=== PATIENT | female | born 1975 | race Caucasian/White ===

== ENCOUNTER 2016-06-10 21:23 | Emergency (ER) | payer MEDICAID ==
[2016-06-10 21:38] VITALS: BP 121/76
== END 2016-06-10 22:49 | disposition home or self-care (01) ==
LOC: ED 21:23
DX: S43.402A Unspecified sprain of left shoulder joint, initial encounter (principal); S93.402A Sprain of unspecified ligament of left ankle, initial encounter; W01.0XXA Fall on same level from slipping, tripping and stumbling without subsequent striking against object, initial encounter; Y93.89 Activity, other specified; Y92.512 Supermarket, store or market as the place of occurrence of the external cause; Y99.8 Other external cause status

== ENCOUNTER 2016-11-08 08:38 | Emergency (ER) | payer MEDICAID ==
[2016-11-08 10:02] VITALS: BP 132/87
== END 2016-11-08 10:02 | disposition home or self-care (01) ==
LOC: ED 08:38
DX: B34.9 Viral infection, unspecified (principal); R03.0 Elevated blood-pressure reading, without diagnosis of hypertension
CPT/HCPCS: J7613; J7644

== ENCOUNTER 2017-05-19 11:08 | Emergency (ER) | payer MEDICAID ==
[~2017-05-19] VITALS: Ht 154.9 cm; Wt 85.3 kg
[2017-05-19 11:15] VITALS: Ht 154.9 cm; Wt 85.3 kg
[2017-05-19 13:00] VITALS: BP 138/80
== END 2017-05-19 13:00 | disposition home or self-care (01) ==
LOC: ED 11:08
DX: S61.452A Open bite of left hand, initial encounter (principal); W64.XXXA Exposure to other animate mechanical forces, initial encounter; Y93.89 Activity, other specified; Y92.89 Other specified places as the place of occurrence of the external cause; Y99.8 Other external cause status
CPT/HCPCS: 90715

== ENCOUNTER 2017-09-16 06:44 | Emergency (ER) | payer SELFPAY ==
[~2017-09-16] VITALS: Ht 154.9 cm; Wt 83.9 kg
[2017-09-16 06:52] VITALS: Ht 154.9 cm; Wt 83.9 kg
[2017-09-16 07:35] LABS: BASOPHIL % 0.4 % (0-2); PLATELET COUNT 230 x10^3mcL (130-400)
[2017-09-16 07:55] LABS: RED CELL DISTRIBUTION WIDTH 15.7 % (11.5-14.5)
[2017-09-16 09:11] VITALS: BP 122/79
== END 2017-09-16 09:11 | disposition home or self-care (01) ==
LOC: ED 06:44
PROVIDERS: Emergency Medicine
DX: N93.8 Other specified abnormal uterine and vaginal bleeding (principal); D25.9 Leiomyoma of uterus, unspecified; D64.9 Anemia, unspecified
CPT/HCPCS: 36415

== ENCOUNTER 2017-11-27 18:25 | Emergency (ER) | payer SELFPAY ==
[~2017-11-27] VITALS: Ht 157.5 cm; Wt 80.7 kg
[2017-11-27 18:48] VITALS: Ht 157.5 cm; Wt 80.7 kg
[2017-11-27 19:52] LABS: CALCIUM 8.4 mg/dL (8.5-10.1); CARBON DIOXIDE 25.5 mmol/L (21-32); CHLORIDE SERUM 106 mmol/L (98-107); CREATININE SERUM 0.6 mg/dL (0.6-1.0); GFR1 > 60 mL/min; GLUCOSE SERUM 94 mg/dL (74-106); POTASSIUM SERUM 3.9 mmol/L (3.5-5.1); SODIUM SERUM 140 mmol/L (136-145)
[2017-11-27 19:59] LABS: ALBUMIN 3.6 g/dL (3.4-5.0); ALKALINE PHOSPHATASE 51 U/L (46-116); ALT/SGPT 26 U/L (14-59); AST/SGOT 14 U/L (15-37); BILIRUBIN TOTAL 0.2 mg/dL (0.20-1.00); LIPASE 170 IU/L (73-393); TOTAL PROTEIN, SERUM 7.3 g/dL (6.4-8.2)
[2017-11-27 20:06] LABS: BASOPHIL % 0.3 % (0-2); PLATELET COUNT 291 x10^3mcL (130-400); RED CELL DISTRIBUTION WIDTH 17.1 % (11.5-14.5)
[2017-11-27 20:49] LABS: UA SPECIFIC GRAVITY >=1.030 (1.005-1.035); microscopic required? YES; urine erythrocyte 3+ (NEGATIVE)
[2017-11-27 22:14] VITALS: BP 105/70
== END 2017-11-27 22:40 | disposition home or self-care (01) ==
LOC: ED 18:25
PROVIDERS: Emergency Medicine
DX: N93.8 Other specified abnormal uterine and vaginal bleeding (principal); Z98.890 Other specified postprocedural states
CPT/HCPCS: J1050; J1885; J2405; J7030

== ENCOUNTER 2018-02-17 04:08 | Emergency (ER) | payer MEDICAID ==
[~2018-02-17] VITALS: Ht 154.9 cm; Wt 83.0 kg
[2018-02-17 04:45] LABS: UA SPECIFIC GRAVITY 1.025 (1.005-1.035); microscopic required? YES; urine erythrocyte 3+ (NEGATIVE)
[2018-02-17 04:47] LABS: BASOPHIL % 0.3 % (0-2); PLATELET COUNT 312 x10^3mcL (130-400); RED CELL DISTRIBUTION WIDTH 18.2 % (11.5-14.5)
[2018-02-17 04:55] LABS: CARBON DIOXIDE 26.5 mmol/L (21-32); CHLORIDE SERUM 104 mmol/L (98-107); GFR1 > 60 mL/min; GLUCOSE SERUM 120 mg/dL (74-106); POTASSIUM SERUM 3.6 mmol/L (3.5-5.1); SODIUM SERUM 141 mmol/L (136-145)
[2018-02-17 07:08] VITALS: BP 101/64
== END 2018-02-17 07:08 | disposition home or self-care (01) ==
LOC: ED 04:08
PROVIDERS: Student in an Organized Health Care Education/Training Program
DX: N92.0 Excessive and frequent menstruation with regular cycle (principal); D25.9 Leiomyoma of uterus, unspecified; Z98.890 Other specified postprocedural states
CPT/HCPCS: J7030; Q0092

== ENCOUNTER 2019-01-29 17:19 | Emergency (ER) | payer MEDICAID ==
[~2019-01-29] VITALS: Ht 154.9 cm; Wt 87.1 kg
[2019-01-29 17:28] VITALS: Ht 154.9 cm; Wt 87.1 kg
[2019-01-29 20:14] VITALS: BP 112/69
== END 2019-01-29 20:15 | disposition home or self-care (01) ==
LOC: ED 17:19
DX: J20.9 Acute bronchitis, unspecified (principal); M54.6 Pain in thoracic spine; Z98.890 Other specified postprocedural states

== ENCOUNTER 2019-06-19 10:25 | Emergency (ER) | payer SELFPAY ==
[~2019-06-19] VITALS: Ht 154.9 cm; Wt 86.6 kg
[2019-06-19 10:34] VITALS: Ht 154.9 cm; Wt 86.6 kg
[2019-06-19 12:06] LABS: microscopic required? NO
[2019-06-19 12:07] LABS: BASOPHIL % 0.3 % (0-2); CALCIUM 9.4 mg/dL (8.5-10.1); CARBON DIOXIDE 24.5 mmol/L (21-32); CHLORIDE SERUM 105 mmol/L (98-107); CREATININE SERUM 0.6 mg/dL (0.6-1.0); GFR1 > 60 mL/min; GLUCOSE SERUM 104 mg/dL (74-106); PLATELET COUNT 257 x10^3mcL (130-400); POTASSIUM SERUM 3.8 mmol/L (3.5-5.1); SODIUM SERUM 140 mmol/L (136-145)
[2019-06-19 12:08] LABS: RED CELL DISTRIBUTION WIDTH 14.9 % (11.5-14.5)
[2019-06-19 12:24] LABS: UA SPECIFIC GRAVITY <=1.005 (1.005-1.035); urine erythrocyte NEGATIVE (NEGATIVE)
[2019-06-19 12:24] LABS: FREE T4 0.88 ng/dL (0.76-1.46); FREE THYROXINE INDEX 2.2 ug/dL (1.4-4.5); T4(THYROXINE) 7.1 ug/dL (4.7-13.3)
[2019-06-19 12:26] LABS: ALBUMIN 3.8 g/dL (3.4-5.0); ALKALINE PHOSPHATASE 43 U/L (46-116); ALT/SGPT 22 U/L (14-59); AST/SGOT 13 U/L (15-37); BILIRUBIN TOTAL 0.3 mg/dL (0.20-1.00); CHOLESTEROL 166 mg/dL (<200); CHOLESTEROL/HDL RATIO 3.8; HDL CHOLESTEROL 44 mg/dL (40-60); LIPASE 125 IU/L (73-393); TOTAL PROTEIN, SERUM 7.1 g/dL (6.4-8.2); TRIGLYCERIDES 84 mg/dL (<150)
[2019-06-19 12:58] LABS: T3 TOTAL 1.4 ng/mL
[2019-06-19 15:43] VITALS: BP 101/65
== END 2019-06-19 15:43 | disposition home or self-care (01) ==
LOC: ED 10:25
PROVIDERS: Specialist
DX: R07.89 Other chest pain (principal); Z98.890 Other specified postprocedural states
CPT/HCPCS: 83880; 84439; J1885; J7030; Q0092

== ENCOUNTER 2019-12-03 09:11 | Emergency (ER) | payer MEDICAID ==
[~2019-12-03] VITALS: Ht 162.6 cm; Wt 85.3 kg
[2019-12-03 09:27] VITALS: Ht 162.6 cm; Wt 85.3 kg
[2019-12-03 10:19] LABS: BASOPHIL % 0.5 % (0-2); PLATELET COUNT 262 x10^3mcL (130-400)
[2019-12-03 10:21] LABS: CALCIUM 8.6 mg/dL (8.5-10.1); CARBON DIOXIDE 26.6 mmol/L (21-32); CHLORIDE SERUM 105 mmol/L (98-107); CREATININE SERUM 0.6 mg/dL (0.6-1.0); GFR1 > 60 mL/min; GLUCOSE SERUM 95 mg/dL (74-106); POTASSIUM SERUM 3.8 mmol/L (3.5-5.1); SODIUM SERUM 138 mmol/L (136-145)
[2019-12-03 10:27] LABS: RED CELL DISTRIBUTION WIDTH 17.7 % (11.5-14.5)
[2019-12-03 10:37] LABS: ALBUMIN 3.5 g/dL (3.4-5.0); ALKALINE PHOSPHATASE 46 U/L (46-116); ALT/SGPT 19 U/L (14-59); AST/SGOT 21 U/L (15-37); BILIRUBIN TOTAL 0.2 mg/dL (0.20-1.00); TOTAL PROTEIN, SERUM 6.4 g/dL (6.4-8.2)
[2019-12-03 11:36] VITALS: BP 126/80
== END 2019-12-03 11:36 | disposition home or self-care (01) ==
LOC: ED 09:11
PROVIDERS: Emergency Medicine
DX: R07.89 Other chest pain (principal); D64.9 Anemia, unspecified; Z98.890 Other specified postprocedural states
CPT/HCPCS: 83880; 85378; J1885; Q0092

== ENCOUNTER 2019-12-24 00:10 | Emergency (ER) | payer MEDICAID ==
[~2019-12-24] VITALS: Ht 160 cm; Wt 83.9 kg
[2019-12-24 00:17] VITALS: Ht 160 cm; Wt 83.9 kg
[2019-12-24 01:05] LABS: CALCIUM 8.6 mg/dL (8.5-10.1); CARBON DIOXIDE 27.5 mmol/L (21-32); CHLORIDE SERUM 103 mmol/L (98-107); CREATININE SERUM 0.6 mg/dL (0.6-1.0); GFR1 > 60 mL/min; GLUCOSE SERUM 101 mg/dL (74-106); SODIUM SERUM 138 mmol/L (136-145)
[2019-12-24 01:12] LABS: ALBUMIN 3.9 g/dL (3.4-5.0); ALKALINE PHOSPHATASE 56 U/L (46-116); ALT/SGPT 24 U/L (14-59); AST/SGOT 32 U/L (15-37); BILIRUBIN TOTAL 0.36 mg/dL (0.20-1.00); TOTAL PROTEIN, SERUM 7.5 g/dL (6.4-8.2)
[2019-12-24 01:31] LABS: PLATELET COUNT 326 x10^3mcL (130-400)
[2019-12-24 01:32] LABS: BASOPHIL % 0.4 % (0-2)
[2019-12-24 03:18] VITALS: BP 100/56
== END 2019-12-24 03:27 | disposition home or self-care (01) ==
LOC: ED 00:10
PROVIDERS: Emergency Medicine
DX: F41.0 Panic disorder [episodic paroxysmal anxiety] (principal); D50.9 Iron deficiency anemia, unspecified; Z98.890 Other specified postprocedural states; Z90.49 Acquired absence of other specified parts of digestive tract
CPT/HCPCS: C9113; J1885; J2060

== ENCOUNTER 2020-01-31 09:06 | Emergency (ER) | payer MEDICAID ==
[~2020-01-31] VITALS: Ht 154.9 cm; Wt 83.9 kg
[2020-01-31 09:18] VITALS: BP 130/84; Ht 154.9 cm; Wt 83.9 kg
[2020-01-31 10:27] LABS: BASOPHIL % 0.3 % (0.2-1.3); PLATELET COUNT 208 x10^3mcL (179-408)
[2020-01-31 10:37] LABS: CALCIUM 8.6 mg/dL (8.5-10.1); CARBON DIOXIDE 26.5 mmol/L (21-32); CHLORIDE SERUM 101 mmol/L (98-107); CREATININE SERUM 0.6 mg/dL (0.6-1.0); GFR1 > 60 mL/min; GLUCOSE SERUM 103 mg/dL (74-106); POTASSIUM SERUM 3.7 mmol/L (3.5-5.1); SODIUM SERUM 138 mmol/L (136-145)
[2020-01-31 10:42] LABS: ALBUMIN 3.6 g/dL (3.4-5.0); ALKALINE PHOSPHATASE 52 U/L (46-116); ALT/SGPT 18 U/L (14-59); AST/SGOT 13 U/L (15-37); BILIRUBIN TOTAL 0.2 mg/dL (0.20-1.00); TOTAL PROTEIN, SERUM 6.9 g/dL (6.4-8.2)
[2020-01-31 10:48] LABS: RED CELL DISTRIBUTION WIDTH 22.9 % (12.3-17.7)
[2020-01-31 12:55] LABS: rbc morphology (normal/abnorm) NORMAL (NORMAL)
== END 2020-01-31 15:42 | disposition home or self-care (01) ==
LOC: ED 09:06
DX: R07.89 Other chest pain (principal); T39.1X5A Adverse effect of 4-Aminophenol derivatives, initial encounter; Z98.890 Other specified postprocedural states; Y92.89 Other specified places as the place of occurrence of the external cause

== ENCOUNTER 2020-02-26 03:15 | Emergency (ER) | payer MEDICAID, SELFPAY ==
[~2020-02-26] VITALS: Ht 154.9 cm; Wt 81.6 kg
[2020-02-26 03:18] VITALS: BP 118/81; Ht 154.9 cm; Wt 81.6 kg
== END 2020-02-26 04:16 | disposition home or self-care (01) ==
LOC: ED 03:15
DX: U07.1 COVID-19 (principal); S02.5XXA Fracture of tooth (traumatic), initial encounter for closed fracture; X58.XXXA Exposure to other specified factors, initial encounter; Y93.89 Activity, other specified; Y92.89 Other specified places as the place of occurrence of the external cause; Y99.8 Other external cause status
CPT/HCPCS: U0003

== ENCOUNTER 2020-02-28 17:33 | Emergency (ER) | payer MEDICAID, SELFPAY ==
[~2020-02-28] VITALS: Ht 160 cm; Wt 90.7 kg
[2020-02-28 17:36] VITALS: Ht 160 cm; Wt 90.7 kg
[2020-02-28 19:40] LABS: BASOPHIL % 0.4 % (0.2-1.3); PLATELET COUNT 271 x10^3mcL (179-408)
[2020-02-28 19:41] LABS: RED CELL DISTRIBUTION WIDTH 21.7 % (12.3-17.7)
[2020-02-28 19:57] LABS: CALCIUM 8.9 mg/dL (8.5-10.1); CARBON DIOXIDE 29.4 mmol/L (21-32); CHLORIDE SERUM 105 mmol/L (98-107); CREATININE SERUM 0.7 mg/dL (0.6-1.0); GFR1 > 60 mL/min; GLUCOSE SERUM 99 mg/dL (74-106); POTASSIUM SERUM 3.7 mmol/L (3.5-5.1); SODIUM SERUM 143 mmol/L (136-145)
[2020-02-28 20:03] LABS: ALBUMIN 3.9 g/dL (3.4-5.0); ALKALINE PHOSPHATASE 51 U/L (46-116); ALT/SGPT 27 U/L (14-59); AST/SGOT 10 U/L (15-37); BILIRUBIN TOTAL 0.22 mg/dL (0.20-1.00); TOTAL PROTEIN, SERUM 7.5 g/dL (6.4-8.2)
[2020-02-28 20:40] VITALS: BP 143/92
== END 2020-02-28 20:40 | disposition home or self-care (01) ==
LOC: ED 17:33
PROVIDERS: Specialist
DX: U07.1 COVID-19 (principal); R10.30 Lower abdominal pain, unspecified; R30.0 Dysuria; M54.5 Low back pain; Z98.890 Other specified postprocedural states; Z86.73 Personal history of transient ischemic attack (TIA), and cerebral infarction without residual deficits

== ENCOUNTER 2020-03-08 16:19 | Emergency (ER) | payer MEDICAID ==
[~2020-03-08] VITALS: Ht 160 cm; Wt 72.6 kg
[2020-03-08 16:24] VITALS: Ht 160 cm; Wt 72.6 kg
[2020-03-08 17:26] LABS: BASOPHIL % 0.3 % (0.2-1.3); PLATELET COUNT 214 x10^3mcL (179-408)
[2020-03-08 17:31] LABS: RED CELL DISTRIBUTION WIDTH 20.9 % (12.3-17.7)
[2020-03-08 18:04] LABS: CALCIUM 8.3 mg/dL (8.5-10.1); CARBON DIOXIDE 23.9 mmol/L (21-32); CHLORIDE SERUM 97 mmol/L (98-107); CREATININE SERUM 0.7 mg/dL (0.6-1.0); GFR1 > 60 mL/min; GLUCOSE SERUM 168 mg/dL (74-106); POTASSIUM SERUM 3.8 mmol/L (3.5-5.1); SODIUM SERUM 130 mmol/L (136-145)
[2020-03-08 18:12] LABS: ALBUMIN 3.5 g/dL (3.4-5.0); ALKALINE PHOSPHATASE 43 U/L (46-116); ALT/SGPT 18 U/L (14-59); AST/SGOT 5 U/L (15-37); BILIRUBIN TOTAL 0.19 mg/dL (0.20-1.00); TOTAL PROTEIN, SERUM 6.7 g/dL (6.4-8.2)
[2020-03-08 18:46] VITALS: BP 147/89
== END 2020-03-08 18:25 | disposition home or self-care (01) ==
LOC: ED 16:19
PROVIDERS: Student in an Organized Health Care Education/Training Program
DX: U07.1 COVID-19 (principal); E87.1 Hypo-osmolality and hyponatremia; Z98.890 Other specified postprocedural states; Z86.2 Personal history of diseases of the blood and blood-forming organs and certain disorders involving the immune mechanism

== ENCOUNTER 2020-03-10 22:19 | Emergency (ER) | payer MEDICAID ==
[~2020-03-10] VITALS: Ht 157.5 cm; Wt 81.6 kg
[2020-03-10 22:22] VITALS: Ht 157.5 cm; Wt 81.6 kg
[2020-03-11 01:02] VITALS: BP 133/65
== END 2020-03-11 01:02 | disposition home or self-care (01) ==
LOC: ED 22:19
DX: U07.1 COVID-19 (principal); Z90.49 Acquired absence of other specified parts of digestive tract; Z98.890 Other specified postprocedural states
CPT/HCPCS: J1100; J1885

== ENCOUNTER 2020-03-11 08:33 | Emergency (ER) | payer MEDICAID ==
[~2020-03-11] VITALS: Ht 157.5 cm; Wt 81.6 kg
[2020-03-11 08:35] VITALS: Ht 157.5 cm; Wt 81.6 kg
[2020-03-11 10:20] LABS: BASOPHIL % 1.9 % (0.2-1.3); PLATELET COUNT 271 x10^3mcL (179-408)
[2020-03-11 10:24] LABS: RED CELL DISTRIBUTION WIDTH 21.1 % (12.3-17.7)
[2020-03-11 11:09] LABS: CALCIUM 9.4 mg/dL (8.5-10.1); CARBON DIOXIDE 25.5 mmol/L (21-32); CHLORIDE SERUM 101 mmol/L (98-107); CREATININE SERUM 0.6 mg/dL (0.6-1.0); GFR1 > 60 mL/min; GLUCOSE SERUM 145 mg/dL (74-106); POTASSIUM SERUM 3.9 mmol/L (3.5-5.1); SODIUM SERUM 135 mmol/L (136-145)
[2020-03-11 11:13] LABS: ALBUMIN 4.2 g/dL (3.4-5.0); ALKALINE PHOSPHATASE 49 U/L (46-116); ALT/SGPT 21 U/L (14-59); AMYLASE 27 U/L (25-115); AST/SGOT 6 U/L (15-37); BILIRUBIN TOTAL 0.29 mg/dL (0.20-1.00); LIPASE 81 IU/L (73-393); TOTAL PROTEIN, SERUM 7.8 g/dL (6.4-8.2)
[2020-03-11 12:45] VITALS: BP 128/92
== END 2020-03-11 12:45 | disposition home or self-care (01) ==
LOC: ED 08:33
PROVIDERS: Emergency Medicine
DX: U07.1 COVID-19 (principal); K29.70 Gastritis, unspecified, without bleeding; Z98.890 Other specified postprocedural states

== ENCOUNTER 2020-03-15 04:23 | Emergency (ER) | payer MEDICAID ==
[~2020-03-15] VITALS: Ht 154.9 cm; Wt 85.0 kg
[2020-03-15 04:28] VITALS: Ht 154.9 cm; Wt 85.0 kg
[2020-03-15 06:03] VITALS: BP 128/83
== END 2020-03-15 06:03 | disposition home or self-care (01) ==
LOC: ED 04:23
DX: M79.10 Myalgia, unspecified site (principal); R51.9 Headache, unspecified; R07.89 Other chest pain; Z98.890 Other specified postprocedural states; Z90.49 Acquired absence of other specified parts of digestive tract
CPT/HCPCS: J1885

== ENCOUNTER 2020-03-22 13:29 | Emergency (ER) | payer MEDICAID ==
[~2020-03-22] VITALS: Ht 157.5 cm; Wt 99.8 kg
[2020-03-22 13:52] VITALS: Ht 157.5 cm; Wt 99.8 kg
[2020-03-22 15:28] LABS: BASOPHIL % 0.2 % (0.2-1.3); PLATELET COUNT 236 x10^3mcL (179-408)
[2020-03-22 15:32] LABS: RED CELL DISTRIBUTION WIDTH 20.1 % (12.3-17.7)
[2020-03-22 15:57] LABS: T3 TOTAL 0.98 ng/mL
[2020-03-22 15:59] LABS: CALCIUM 8.5 mg/dL (8.5-10.1); CARBON DIOXIDE 26.6 mmol/L (21-32); CHLORIDE SERUM 104 mmol/L (98-107); CREATININE SERUM 0.7 mg/dL (0.6-1.0); GFR1 > 60 mL/min; GLUCOSE SERUM 112 mg/dL (74-106); POTASSIUM SERUM 3.8 mmol/L (3.5-5.1); SODIUM SERUM 140 mmol/L (136-145)
[2020-03-22 16:04] LABS: ALBUMIN 3.6 g/dL (3.4-5.0); ALKALINE PHOSPHATASE 39 U/L (46-116); ALT/SGPT 18 U/L (14-59); AST/SGOT 16 U/L (15-37); BILIRUBIN TOTAL 0.3 mg/dL (0.20-1.00); CHOLESTEROL 139 mg/dL (<200); CHOLESTEROL/HDL RATIO 3.4; HDL CHOLESTEROL 41 mg/dL (40-60); LIPASE 108 IU/L (73-393); TOTAL PROTEIN, SERUM 6.9 g/dL (6.4-8.2); TRIGLYCERIDES 56 mg/dL (<150)
[2020-03-22 16:21] LABS: FREE T4 0.95 ng/dL (0.76-1.46); FREE THYROXINE INDEX 2.7 ug/dL (1.4-4.5); T4(THYROXINE) 7.6 ug/dL (4.7-13.3)
[2020-03-22 16:30] LABS: UA SPECIFIC GRAVITY 1.025 (1.005-1.035); microscopic required? YES; urine erythrocyte 3+ (NEGATIVE)
[2020-03-22 18:57] VITALS: BP 134/78
== END 2020-03-22 18:57 | disposition home or self-care (01) ==
LOC: ED 13:29
PROVIDERS: Specialist
DX: N39.0 Urinary tract infection, site not specified (principal); K21.9 Gastro-esophageal reflux disease without esophagitis; D64.9 Anemia, unspecified
CPT/HCPCS: 83880; 84439; J1885

== ENCOUNTER 2020-03-26 21:57 | Emergency (ER) | payer MEDICAID ==
[~2020-03-26] VITALS: Ht 154.9 cm; Wt 83.9 kg
[2020-03-26 22:03] VITALS: BP 131/88; Ht 154.9 cm; Wt 83.9 kg
[2020-03-26 22:50] LABS: BASOPHIL % 0.4 % (0.2-1.3); PLATELET COUNT 227 x10^3mcL (179-408)
[2020-03-26 22:53] LABS: RED CELL DISTRIBUTION WIDTH 19.5 % (12.3-17.7)
[2020-03-26 23:01] LABS: CALCIUM 9.2 mg/dL (8.5-10.1); CARBON DIOXIDE 25.7 mmol/L (21-32); CHLORIDE SERUM 102 mmol/L (98-107); CREATININE SERUM 0.6 mg/dL (0.6-1.0); GFR1 > 60 mL/min; GLUCOSE SERUM 109 mg/dL (74-106); POTASSIUM SERUM 3.4 mmol/L (3.5-5.1); SODIUM SERUM 137 mmol/L (136-145)
[2020-03-26 23:05] LABS: ALBUMIN 3.9 g/dL (3.4-5.0); ALKALINE PHOSPHATASE 36 U/L (46-116); ALT/SGPT 17 U/L (14-59); AST/SGOT 10 U/L (15-37); BILIRUBIN TOTAL 0.33 mg/dL (0.20-1.00); LIPASE 113 IU/L (73-393); TOTAL PROTEIN, SERUM 7.1 g/dL (6.4-8.2)
[2020-03-27] MEDS ORDERED: PROTONIX TR40 M1 PO (13:06)
== END 2020-03-27 03:52 | disposition home or self-care (01) ==
LOC: ED 21:57
PROVIDERS: Emergency Medicine
DX: K29.70 Gastritis, unspecified, without bleeding (principal); K21.9 Gastro-esophageal reflux disease without esophagitis; Z86.2 Personal history of diseases of the blood and blood-forming organs and certain disorders involving the immune mechanism; Z98.890 Other specified postprocedural states
CPT/HCPCS: J1885; J7030

== ENCOUNTER 2020-03-27 11:05 | Emergency (ER) | payer MEDICAID ==
[~2020-03-27] VITALS: Ht 162.6 cm; Wt 64.4 kg
[2020-03-27 11:20] VITALS: Ht 162.6 cm; Wt 64.4 kg
[2020-03-27 12:19] LABS: BASOPHIL % 0.6 % (0.2-1.3); PLATELET COUNT 215 x10^3mcL (179-408)
[2020-03-27 12:20] LABS: RED CELL DISTRIBUTION WIDTH 19.5 % (12.3-17.7)
[2020-03-27 12:45] LABS: CHLORIDE SERUM 107 mmol/L (98-107); CREATININE SERUM 0.6 mg/dL (0.6-1.0); GFR1 > 60 mL/min; GLUCOSE SERUM 100 mg/dL (74-106); POTASSIUM SERUM 3.8 mmol/L (3.5-5.1); SODIUM SERUM 139 mmol/L (136-145)
[2020-03-27 12:47] LABS: ALBUMIN 3.7 g/dL (3.4-5.0); ALKALINE PHOSPHATASE 39 U/L (46-116); ALT/SGPT 19 U/L (14-59); AST/SGOT 7 U/L (15-37); BILIRUBIN TOTAL 0.44 mg/dL (0.20-1.00); TOTAL PROTEIN, SERUM 6.9 g/dL (6.4-8.2)
[2020-03-27] MEDS ORDERED: PROTONIX TR40 M1 PO (13:06)
[2020-03-27 13:27] VITALS: BP 142/89
== END 2020-03-27 13:27 | disposition home or self-care (01) ==
LOC: ED 11:05
PROVIDERS: Emergency Medicine
DX: K29.60 Other gastritis without bleeding (principal); A04.8 Other specified bacterial intestinal infections

== ENCOUNTER 2020-04-12 01:41 | Emergency (ER) | payer MEDICAID ==
[~2020-04-12] VITALS: Ht 154.9 cm; Wt 79.4 kg
[~2020-04-12 01:41] MED LIST: PROTONIX TR40 M1 PO
[2020-04-12 01:56] VITALS: Ht 154.9 cm; Wt 79.4 kg
[2020-04-12 02:39] VITALS: BP 119/71
== END 2020-04-12 03:15 | disposition home or self-care (01) ==
LOC: ED 01:41
DX: G44.209 Tension-type headache, unspecified, not intractable (principal); K21.9 Gastro-esophageal reflux disease without esophagitis